=== PATIENT | female | born 1955 | race Two or more races ===

== ENCOUNTER 2025-02-28 09:37 | Inpatient (IN) | payer OTHER ==
[~2025-02-28] VITALS: Wt 54.4 kg
[2025-02-28] MEDS ORDERED: CEFTRIAXONE SODIUM 1,000 MG VIAL IV SCH (20:13)
[2025-02-28] MEDS ORDERED: NITROGLYCERIN IN 5 % DEXTROSE 250 ML IV SCH (20:15)
[2025-02-28] MEDS ORDERED: ENOXAPARIN SODIUM 30 MG/0.3 ML SYRINGE SUBCUTANEO SCH (20:15)
[2025-02-28] MEDS ORDERED: ACETAMINOPHEN 325 MG TABLET PO PRN (20:15)
[2025-02-28] MEDS ORDERED: ATORVASTATIN CALCIUM 20 MG TABLET PO SCH (20:20)
[2025-02-28] MEDS ORDERED: ENOXAPARIN SODIUM 40 MG/0.4 ML SYRINGE SUBCUTANEO ONE (20:58)
[2025-02-28] MEDS ORDERED: CEFTRIAXONE SODIUM 1,000 MG VIAL ONE (20:58)
[2025-02-28] MEDS ORDERED: NITROGLYCERIN IN 5 % DEXTROSE 50 MG/250 ML BOTTLE IV ONE (20:59)
[2025-02-28 21:46] LABS: BASO % 0.8 % (0.1-1.2); EOS # 0.36 (0.04-0.54); EOS % 6.8 % (0.7-7.0); LYMPH # 1.46 (1.18-3.74); LYMPH % 27.5 % (19.3-53.1); MEAN PLATELET VOLUME 11.10 fl (9.4-12.4); MONO # 0.55 (0.24-0.82); MONO % 10.4 % (4.7-12.5); NEUT # 2.88 (1.56-6.13); NEUT % 54.3 % (34.0-71.1); RED CELL DISTRIBUTION WIDTH 15.5 % (11.6-14.4)
[2025-02-28 22:49] LABS: INR 1.14
[2025-02-28 22:56] LABS: ABG PH 7.314 (7.35-7.45)
[2025-02-28 22:57] LABS: ABG PO2 97.5 mmHg (80-100); BICARBONATE 15.8 mmol/l (23-25); o2 21 %
[2025-02-28 23:03] LABS: BUN CREA RATIO 25.0 (7.0-25.0); CREATININE SERUM 3.61 mg/dL (0.55-1.02); GFR 12.46; GLUCOSE FASTING 117.0 mg/dL (65-100); OSMOLALITY SERUM 312.0 MOSM/KG (275-295)
[2025-02-28 23:16] LABS: CKMB 2.2 NG/ML (0.5-3.6)
[2025-03-01 00:06] LABS: URINE APPEARANCE Clear; URINE BILIRRUBIN Negative (NEGATIVE); URINE BLOOD Negative; URINE COLOR Yellow; URINE KETONE Negative (NEGATIVE); URINE LEUKOCYTE Small; URINE NITRATE Negative; URINE PROTEIN Trace (NEGATIVE); URINE UROBILINOGEN 0.2 E.U./dl
[2025-03-01 00:09] LABS: URINE BACTERIA 1975.0 uL (0.0-1933); URINE EPITHELIAL CELLS 7.8 uL (0.0-38.8); URINE WBC 101.5 uL (0.0-23.2)
[2025-03-01 00:23] LABS: URINE CAST 0.73 uL (0.0-1.40); URINE GLUCOSE 100 MG/DL (NEGATIVE); URINE RBC 1.0 uL (0.0-20.8)
[2025-03-01 02:05] VITALS: BP 192/72; O2SAT 99
[2025-03-01 02:24] VITALS: O2SAT 100
[2025-03-01 05:59] VITALS: O2SAT 100
[2025-03-01] MEDS ORDERED: NITROGLYCERIN IN 5 % DEXTROSE 250 ML IV SCH (07:15)
[2025-03-01 07:54] LABS: CREATININE SERUM 3.98 mg/dL (0.6-1.0)
[2025-03-01 08:00] VITALS: BP 143/52; O2SAT 98
[2025-03-01] MEDS ORDERED: AMLODIPINE BESYLATE 5 MG TABLET PO SCH (09:00)
[2025-03-01] MEDS ORDERED: CARVEDILOL 12.5 MG TABLET PO SCH (09:00)
[2025-03-01 09:47] VITALS: O2SAT 100
[2025-03-01 15:30] VITALS: BP 156/82; O2SAT 99
[2025-03-02] VITALS (9 sets, daily range): BP systolic 130–158; BP diastolic 60–73; O2SAT 90–100
[2025-03-02 07:23] LABS: GFR 9.1; GLUCOSE FASTING 83.0 mg/dL (65-100)
[2025-03-02 07:38] LABS: BUN CREA RATIO 23.0 (7.0-25.0); OSMOLALITY SERUM 314.0 MOSM/KG (275-295)
[2025-03-02 07:40] LABS: CREATININE SERUM 4.74 mg/dL (0.55-1.02)
[2025-03-02] MEDS ORDERED: MEROPENEM 500 MG/VIAL VIAL IV SCH (09:00)
[2025-03-02] MEDS ORDERED: 0.9 % SODIUM CHLORIDE 1,000 ML IV SCH (11:00)
[2025-03-02] MEDS ORDERED: SODIUM POLYSTYRENE SULFONATE 15 G/4 TSP TSP PO SCH (17:00)
[2025-03-03] VITALS (7 sets, daily range): BP systolic 186–191; BP diastolic 74; O2SAT 91–100
[2025-03-03 06:54] LABS: BASO % 1.1 % (0.1-1.2); EOS # 0.45 (0.04-0.54); EOS % 9.5 % (0.7-7.0); LYMPH # 1.38 (1.18-3.74); LYMPH % 29.2 % (19.3-53.1); MEAN PLATELET VOLUME 10.60 fl (9.4-12.4); MONO # 0.48 (0.24-0.82); MONO % 10.2 % (4.7-12.5); NEUT # 2.36 (1.56-6.13); NEUT % 50.0 % (34.0-71.1); RED CELL DISTRIBUTION WIDTH 14.9 % (11.6-14.4)
[2025-03-03 07:44] LABS: BUN CREA RATIO 28.0 (7.0-25.0); CREATININE SERUM 3.39 mg/dL (0.55-1.02); GFR 13.4; GLUCOSE FASTING 82.0 mg/dL (65-100); OSMOLALITY SERUM 312.0 MOSM/KG (275-295)
[2025-03-03] MEDS ORDERED: MEROPENEM 500 MG/VIAL VIAL IV SCH (21:00)
[2025-03-04] VITALS (10 sets, daily range): BP systolic 141–192; BP diastolic 70–81; O2SAT 98–100
[2025-03-04] MEDS ORDERED: NIFEDIPINE 30 MG TAB.SA.OSM PO SCH ×2 (09:00→21:00)
[2025-03-04 12:44] LABS: ALT/SGPT 15.0 U/L (12-78); AST/SGOT 14.0 U/L (15-37); BILIRUBIN TOTAL 1.0 mg/dL (0.3-1.2); BUN CREA RATIO 34.0 (7.0-25.0); CREATININE SERUM 2.33 mg/dL (0.55-1.02); GFR 20.65; GLOBULINA 3.6 G/DL (2.4-3.5); GLUCOSE FASTING 109.0 mg/dL (65-100); OSMOLALITY SERUM 306.0 MOSM/KG (275-295)
[2025-03-04] MEDS ORDERED: DOXAZOSIN MESYLATE 2 MG TABLET PO SCH (21:00)
[2025-03-05] VITALS (9 sets, daily range): BP systolic 118–144; BP diastolic 62–64; O2SAT 91–99
[2025-03-05 08:38] LABS: BUN CREA RATIO 24.0 (7.0-25.0); CREATININE SERUM 3.37 mg/dL (0.55-1.02); GFR 13.49; GLUCOSE FASTING 95.0 mg/dL (65-100); OSMOLALITY SERUM 297.0 MOSM/KG (275-295)
[2025-03-05 08:39] LABS: BASO % 1.0 % (0.1-1.2); EOS # 0.38 (0.04-0.54); EOS % 9.1 % (0.7-7.0); LYMPH # 0.93 (1.18-3.74); LYMPH % 22.2 % (19.3-53.1); MEAN PLATELET VOLUME 11.30 fl (9.4-12.4); MONO # 0.47 (0.24-0.82); MONO % 11.2 % (4.7-12.5); NEUT # 2.35 (1.56-6.13); NEUT % 56.3 % (34.0-71.1); RED CELL DISTRIBUTION WIDTH 14.6 % (11.6-14.4)
[2025-03-05] MEDS ORDERED: TAMSULOSIN HCL 0.4 MG CAP PO SCH (09:00)
[2025-03-05 11:59] LABS: URINE APPEARANCE Cloudy; URINE BILIRRUBIN Negative (NEGATIVE); URINE BLOOD Negative; URINE COLOR Dark Yellow; URINE GLUCOSE Negative (NEGATIVE); URINE KETONE 15 (NEGATIVE); URINE LEUKOCYTE Trace; URINE NITRATE Negative; URINE PROTEIN 30 (NEGATIVE); URINE UROBILINOGEN 1.0 E.U./dl
[2025-03-05] MEDS ORDERED: PHENAZOPYRIDINE HCL 100 MG TABLET PO NR (12:00)
[2025-03-05 12:03] LABS: URINE BACTERIA 133.1 uL (0.0-1933); URINE CAST 13.63 uL (0.0-1.40); URINE EPITHELIAL CELLS 56.2 uL (0.0-38.8); URINE RBC 32.7 uL (0.0-20.8); URINE WBC 50.9 uL (0.0-23.2)
[2025-03-05 12:15] LABS: TYPE CELLS SQUAMOUS; URINE CRYSTALS FEW /HPF; URINE MUCUS SCANT
[2025-03-05 12:16] LABS: URINE YEAST FEW /hpf
[2025-03-05] MEDS ORDERED: AMINO ACIDS/PROTEIN HYDROLYS 30 ML BLIST.PACK PO SCH (21:00)
[2025-03-06] VITALS (8 sets, daily range): BP systolic 132–149; BP diastolic 57–64; O2SAT 96–99
[2025-03-06] MEDS ORDERED: PHENAZOPYRIDINE HCL 100 MG TABLET PO SCH (09:00)
[2025-03-06] MEDS ORDERED: ONDANSETRON HCL 4 MG in 0.9 % SODIUM CHLORIDE 50 ML IV PRN (17:30)
[2025-03-07] VITALS (8 sets, daily range): BP systolic 148–184; BP diastolic 54–77; O2SAT 95–100
[2025-03-07 06:44] LABS: BASO % 1.0 % (0.1-1.2); EOS # 0.25 (0.04-0.54); EOS % 8.1 % (0.7-7.0); LYMPH # 0.90 (1.18-3.74); LYMPH % 29.1 % (19.3-53.1); MEAN PLATELET VOLUME 10.50 fl (9.4-12.4); MONO # 0.34 (0.24-0.82); MONO % 11.0 % (4.7-12.5); NEUT # 1.56 (1.56-6.13); NEUT % 50.5 % (34.0-71.1); RED CELL DISTRIBUTION WIDTH 15.1 % (11.6-14.4)
[2025-03-07 07:30] LABS: BUN CREA RATIO 29.0 (7.0-25.0); CREATININE SERUM 2.48 mg/dL (0.55-1.02); GFR 19.22; GLUCOSE FASTING 77.0 mg/dL (65-100); OSMOLALITY SERUM 302.0 MOSM/KG (275-295)
[2025-03-08] VITALS (8 sets, daily range): BP systolic 133–147; BP diastolic 56–73; O2SAT 95–99
[2025-03-09 01:20] VITALS: BP 148/74; O2SAT 97
[2025-03-09 01:54] VITALS: O2SAT 98
[2025-03-09 06:15] VITALS: O2SAT 90
[2025-03-09 06:38] LABS: BASO % 1.1 % (0.1-1.2); EOS # 0.34 (0.04-0.54); EOS % 9.4 % (0.7-7.0); LYMPH # 1.10 (1.18-3.74); LYMPH % 30.4 % (19.3-53.1); MEAN PLATELET VOLUME 10.30 fl (9.4-12.4); MONO # 0.45 (0.24-0.82); NEUT # 1.69 (1.56-6.13); NEUT % 46.7 % (34.0-71.1); RED CELL DISTRIBUTION WIDTH 14.8 % (11.6-14.4)
[2025-03-09 06:59] LABS: MONO % 12.4 % (4.7-12.5)
[2025-03-09 07:02] LABS: BUN CREA RATIO 40.0 (7.0-25.0); CREATININE SERUM 1.29 mg/dL (0.55-1.02); GFR 40.86; GLUCOSE FASTING 93.0 mg/dL (65-100); OSMOLALITY SERUM 298.0 MOSM/KG (275-295)
[2025-03-09 10:59] VITALS: BP 138/78; O2SAT 95
[2025-03-09 11:01] VITALS: O2SAT 98
[2025-03-09 13:30] VITALS: O2SAT 99
== END 2025-03-09 14:05 | disposition home or self-care (01) | DRG 690 ==
LOC: ER 09:37 → SURG 20:10 → SEC-K 20:10 → SURH 20:10 → SURG 03-01 00:26 → SURH 03-02 10:10
PROVIDERS: General Practice; Internal Medicine; Specialist/Technologist, Other Nephrology; Student in an Organized Health Care Education/Training Program; ADMIT Internal Medicine; ATTEND Internal Medicine
PROC: B246ZZZ Ultrasonography of Right and Left Heart (ICD-10-PCS; principal; 2025-02-28)
PROC: 4A12X4Z Monitoring of Cardiac Electrical Activity, External Approach (ICD-10-PCS; 2025-03-01)
DX: N39.0 Urinary tract infection, site not specified (principal); N17.8 Other acute kidney failure; I13.0 Hypertensive heart and chronic kidney disease with heart failure and stage 1 through stage 4 chronic kidney disease, or unspecified chronic kidney disease; E87.21 Acute metabolic acidosis; B96.1 Klebsiella pneumoniae [K. pneumoniae] as the cause of diseases classified elsewhere; I12.9 Hypertensive chronic kidney disease with stage 1 through stage 4 chronic kidney disease, or unspecified chronic kidney disease; N18.30 Chronic kidney disease, stage 3 unspecified; I50.9 Heart failure, unspecified; E78.49 Other hyperlipidemia; D64.9 Anemia, unspecified; E86.0 Dehydration

== ENCOUNTER 2025-04-19 16:28 | Inpatient (IN) | payer OTHER ==
[~2025-04-19] VITALS: Ht 152.4 cm; Wt 56.7 kg
[2025-04-19] MEDS ORDERED: CARVEDILOL ER40 MG (17:02)
[2025-04-19] MEDS ORDERED: EZALLOR SPRINKL20 MG (17:02)
[2025-04-19] MEDS ORDERED: ENTRESTO 24 MG1 EACH (17:02)
[2025-04-19] MEDS ORDERED: JARDIANCE10 MG (17:03)
[2025-04-19] MEDS ORDERED: ZETIA10 MG (17:03)
[2025-04-19] MEDS ORDERED: CAROSPIR25 MG/5 ML (17:03)
[2025-04-19] MEDS ORDERED: MONTELUKAST SODI1 GM (17:04)
--- NOTE | 2025-04-19 17:04 | NUR ---
PTE ALERTA Y ORIENTADA X3 PTE RENAL DE EL MISMO LA ENVIO A ER LA PTE TIENE LAB CON BUN Y CREATININA QUE. EL DR. SHAW INDICO QUE CUANDO LA PTE LLEGARA LO LLAMARAN
[2025-04-19] MEDS ORDERED: NIFEDIPINE 30 MG TAB.SA.OSM PO ONE (17:45)
[2025-04-19] MEDS ORDERED: NIFEDIPINE 10 MG CAPSULE PO ONE (17:57)
[2025-04-19 18:24] LABS: BASO % 0.9 % (0.1-1.2); EOS # 0.29 (0.04-0.54); EOS % 6.8 % (0.7-7.0); LYMPH # 0.87 (1.18-3.74); LYMPH % 20.5 % (19.3-53.1); MEAN PLATELET VOLUME 10.50 fl (9.4-12.4); MONO # 0.47 (0.24-0.82); MONO % 11.1 % (4.7-12.5); NEUT # 2.56 (1.56-6.13); NEUT % 60.5 % (34.0-71.1); RED CELL DISTRIBUTION WIDTH 15.9 % (11.6-14.4)
[2025-04-19 18:27] LABS: URINE APPEARANCE Clear; URINE BILIRRUBIN Negative (NEGATIVE); URINE BLOOD Negative; URINE COLOR Yellow; URINE GLUCOSE Negative (NEGATIVE); URINE KETONE Negative (NEGATIVE); URINE LEUKOCYTE Negative; URINE NITRATE Negative; URINE PROTEIN 30 (NEGATIVE); URINE UROBILINOGEN 0.2 E.U./dl
[2025-04-19 18:30] LABS: URINE BACTERIA 4.7 uL (0.0-1933); URINE EPITHELIAL CELLS 3.5 uL (0.0-38.8); URINE WBC 2.6 uL (0.0-23.2)
--- NOTE | 2025-04-19 18:39 | NUR ---
SE ORIENTA A PACIENTE SOBRE TRATAMIENTO MEDICO, REFIERE ENTENDER. SE REALIZAN MUESTRAS DE LABORATORIO BAJO MEDIDAS ASEPTICAS. SE ADMINISTRA MEDICAMENTO MAO ORDEN MEDICA. SE COORDINA KAYLIE X. PACIENTE MANEJADA POR .
[2025-04-19 18:41] LABS: URINE CAST 0.29 uL (0.0-1.40); URINE RBC 0.4 uL (0.0-20.8)
[2025-04-19 18:59] LABS: ALT/SGPT 15.0 U/L (12-78); AST/SGOT 16.0 U/L (15-37); BILIRUBIN TOTAL 0.61 mg/dL (0.3-1.2); GLOBULINA 3.6 G/DL (2.4-3.5); GLUCOSE FASTING 100.0 mg/dL (65-100)
[2025-04-19 19:10] LABS: INR 1.01
[2025-04-19 19:22] LABS: BUN CREA RATIO 29.0 (7.0-25.0); GFR 10.91; OSMOLALITY SERUM 315.0 MOSM/KG (275-295)
[2025-04-19 19:24] LABS: CREATININE SERUM 4.05 mg/dL (0.55-1.02)
[2025-04-19] MEDS ORDERED: INSULIN REGULAR, HUMAN 1,000 UNIT/10 ML UNITS IV ONE (19:30)
[2025-04-19] MEDS ORDERED: CALCIUM GLUCONATE 100 MG/ML VIAL IV ONE (19:30)
[2025-04-19] MEDS ORDERED: SODIUM POLYSTYRENE SULFONATE 30G/8 TSP PO ONE (19:30)
[2025-04-19] MEDS ORDERED: DEXTROSE 50 % IN WATER 0.5 G/ML VIAL IV ONE (19:30)
[2025-04-19] MEDS ORDERED: NITROGLYCERIN IN 5 % DEXTROSE 250 ML IV SCH (19:30)
[2025-04-19] MEDS ORDERED: CALCIUM GLUCONATE 100 MG/ML VIAL ONE (19:41)
[2025-04-19] MEDS ORDERED: DEXTROSE 50 % IN WATER 0.5 G/ML DISP.SYRIN IV ONE (19:41)
[2025-04-19] MEDS ORDERED: NITROGLYCERIN IN 5 % DEXTROSE 50 MG/250 ML BOTTLE IV ONE (19:42)
[2025-04-19] MEDS ORDERED: ACETAMINOPHEN 500 MG GEL..CAP PO PRN (20:00)
[2025-04-19] MEDS ORDERED: SODIUM BICARBONATE 1 MEQ/ML DISP.SYRIN 50ML IV ONE ×2 (20:00→20:18)
[2025-04-19] MEDS ORDERED: SODIUM POLYSTYRENE SULFONATE 30G/8 TSP PO SCH (20:01)
[2025-04-19] MEDS ORDERED: 0.9 % SODIUM CHLORIDE 500 ML IV ONE (20:15)
[2025-04-19] MEDS ORDERED: CITRIC ACID/SODIUM CITRATE 30 ML BLIST.PACK PO ONE (20:18)
[2025-04-19] MEDS ORDERED: CITRIC ACID/SODIUM CITRATE 30 ML BLIST.PACK PO SCH (21:00)
[2025-04-19 22:18] VITALS: BP 158/68; O2SAT 97
[2025-04-19 23:46] VITALS: BP 145/55; O2SAT 99
[2025-04-20] VITALS (12 sets, daily range): BP systolic 116–205; BP diastolic 47–100; O2SAT 96–100
[2025-04-20 06:53] LABS: TSH 2.01 uIU/mL (0.358-3.74)
[2025-04-20] MEDS ORDERED: NITROGLYCERIN IN 5 % DEXTROSE 50 MG/250 ML KIT IV STA (07:09)
[2025-04-20] MEDS ORDERED: NITROGLYCERIN IN 5 % DEXTROSE 50 MG/250 ML KIT IV SCH (07:15)
[2025-04-20] MEDS ORDERED: CLEVIDIPINE BUTYRATE 50 MG/100 ML VIAL IV STA (08:58)
[2025-04-20] MEDS ORDERED: FAMOTIDINE/PF 20 MG in 0.9 % SODIUM CHLORIDE 8 ML IV PUSH SCH (09:00)
[2025-04-20] MEDS ORDERED: ROSUVASTATIN CALCIUM 10 MG TABLET PO SCH (09:00)
[2025-04-20] MEDS ORDERED: NIFEDIPINE 10 MG CAPSULE PO SCH (09:00)
[2025-04-20] MEDS ORDERED: AMINO ACIDS/PROTEIN HYDROLYS 30 ML BLIST.PACK PO SCH (09:00)
[2025-04-20] MEDS ORDERED: CLEVIDIPINE BUTYRATE 100 ML IV SCH (09:30)
[2025-04-20] MEDS ORDERED: NITROGLYCERIN IN 5 % DEXTROSE 250 ML IV SCH (09:30)
[2025-04-20] MEDS ORDERED: FAMOTIDINE/PF 20 MG/2 ML VIAL ONE (10:29)
[2025-04-20] MEDS ORDERED: NIFEDIPINE 10 MG CAPSULE PO ONE (10:29)
[2025-04-20 12:00] LABS: BASO % 0.8 % (0.1-1.2); EOS # 0.26 (0.04-0.54); EOS % 5.3 % (0.7-7.0); LYMPH # 0.64 (1.18-3.74); LYMPH % 13.0 % (19.3-53.1); MEAN PLATELET VOLUME 10.60 fl (9.4-12.4); MONO # 0.41 (0.24-0.82); MONO % 8.3 % (4.7-12.5); NEUT # 3.57 (1.56-6.13); NEUT % 72.4 % (34.0-71.1); RED CELL DISTRIBUTION WIDTH 15.5 % (11.6-14.4)
[2025-04-20 12:26] LABS: ALT/SGPT 13.0 U/L (12-78); AST/SGOT 12.0 U/L (15-37); BILIRUBIN TOTAL 0.61 mg/dL (0.3-1.2); BUN CREA RATIO 30.0 (7.0-25.0); CREATININE SERUM 3.58 mg/dL (0.55-1.02); GFR 12.58; GLOBULINA 3.7 G/DL (2.4-3.5); GLUCOSE FASTING 165.0 mg/dL (65-100); OSMOLALITY SERUM 322.0 MOSM/KG (275-295)
[2025-04-20] MEDS ORDERED: PATIENTS OWN MEDICATION (MEDICAMENTO EN PISO) PO SCH (17:00)
[2025-04-20] MEDS ORDERED: DOXAZOSIN MESYLATE 4 MG TABLET PO SCH (17:00)
[2025-04-21] VITALS (17 sets, daily range): BP systolic 147–183; BP diastolic 45–88; O2SAT 99–100
[2025-04-21 06:43] LABS: BASO % 1.1 % (0.1-1.2); EOS # 0.37 (0.04-0.54); EOS % 7.9 % (0.7-7.0); LYMPH # 1.08 (1.18-3.74); LYMPH % 23.2 % (19.3-53.1); MEAN PLATELET VOLUME 10.40 fl (9.4-12.4); MONO # 0.51 (0.24-0.82); MONO % 10.9 % (4.7-12.5); NEUT # 2.64 (1.56-6.13); NEUT % 56.7 % (34.0-71.1); RED CELL DISTRIBUTION WIDTH 15.6 % (11.6-14.4)
[2025-04-21 07:27] LABS: ALT/SGPT 14.0 U/L (12-78); AST/SGOT 18.0 U/L (15-37); BILIRUBIN TOTAL 0.79 mg/dL (0.3-1.2); BUN CREA RATIO 38.0 (7.0-25.0); CREATININE SERUM 2.59 mg/dL (0.55-1.02); GFR 18.28; GLOBULINA 3.5 G/DL (2.4-3.5); GLUCOSE FASTING 106.0 mg/dL (65-100); OSMOLALITY SERUM 318.0 MOSM/KG (275-295)
[2025-04-21 08:29] LABS: URINE PROT QUANT 24HR 17.9 MG/DL
[2025-04-21 08:33] LABS: CREATINE CLEARANCE 18.6 ML/MIN (97-137); CREATININE SERUM 2.59 mg/dL (0.6-1.0)
[2025-04-21] MEDS ORDERED: DOXAZOSIN MESYLATE 4 MG TABLET PO SCH (09:00)
[2025-04-21] MEDS ORDERED: NIFEDIPINE 30 MG TAB.SA.OSM PO SCH (09:00)
[2025-04-21] MEDS ORDERED: EPOETIN ALFA-EPBX 10,000 UNIT/ML VIAL (Retacrit) SUBCUTANEO SCH ×2 (09:00)
[2025-04-21] MEDS ORDERED: MEROPENEM 500 MG/VIAL VIAL IV SCH (21:00)
[2025-04-22] VITALS (18 sets, daily range): BP systolic 106–168; BP diastolic 43–99; O2SAT 93–100
[2025-04-22 06:48] LABS: BASO % 0.8 % (0.1-1.2); EOS # 0.32 (0.04-0.54); EOS % 6.7 % (0.7-7.0); LYMPH # 1.11 (1.18-3.74); LYMPH % 23.2 % (19.3-53.1); MEAN PLATELET VOLUME 10.50 fl (9.4-12.4); MONO # 0.59 (0.24-0.82); NEUT # 2.72 (1.56-6.13); NEUT % 56.8 % (34.0-71.1); RED CELL DISTRIBUTION WIDTH 15.3 % (11.6-14.4)
[2025-04-22 07:45] LABS: MONO % 12.3 % (4.7-12.5)
[2025-04-22] MEDS ORDERED: LACTOBACILLUS ACIDOPHILUS 1 CAP CAP PO SCH (09:00)
[2025-04-22 09:45] LABS: ALT/SGPT 12.0 U/L (12-78); AST/SGOT 10.0 U/L (15-37); BILIRUBIN TOTAL 0.86 mg/dL (0.3-1.2); BUN CREA RATIO 29.0 (7.0-25.0); CREATININE SERUM 3.77 mg/dL (0.55-1.02); GFR 11.85; GLOBULINA 3.3 G/DL (2.4-3.5); GLUCOSE FASTING 100.0 mg/dL (65-100); OSMOLALITY SERUM 317.0 MOSM/KG (275-295)
[2025-04-22] MEDS ORDERED: Cyanocobalamin/Mecobalamin 1 TAB.SL SL NR (12:45)
[2025-04-22] MEDS ORDERED: ONDANSETRON HCL 2 MG/ML VIAL IV PRN (12:45)
[2025-04-22] MEDS ORDERED: SOD FERRIC GLUC COMPLX/SUCROSE 62.5 MG in 0.9 % SODIUM CHLORIDE 50 ML IV NR (12:45)
[2025-04-23 04:00] VITALS: BP 145/67; O2SAT 98
[2025-04-23 06:54] VITALS: BP 150/86; O2SAT 96
[2025-04-23 07:56] LABS: BASO % 0.4 % (0.1-1.2); EOS # 0.32 (0.04-0.54); EOS % 6.5 % (0.7-7.0); LYMPH # 1.03 (1.18-3.74); LYMPH % 20.8 % (19.3-53.1); MEAN PLATELET VOLUME 11.10 fl (9.4-12.4); MONO # 0.61 (0.24-0.82); NEUT # 2.96 (1.56-6.13); NEUT % 59.8 % (34.0-71.1); RED CELL DISTRIBUTION WIDTH 15.4 % (11.6-14.4)
[2025-04-23 08:16] LABS: MONO % 12.3 % (4.7-12.5)
[2025-04-23 08:29] LABS: GFR 7.52; GLUCOSE FASTING 96.0 mg/dL (65-100)
[2025-04-23] MEDS ORDERED: SOD FERRIC GLUC COMPLX/SUCROSE 62.5 MG in 0.9 % SODIUM CHLORIDE 50 ML IV SCH (09:00)
[2025-04-23] MEDS ORDERED: Cyanocobalamin/Mecobalamin 1 TAB.SL SL SCH (09:00)
[2025-04-23 09:07] LABS: BUN CREA RATIO 22.0 (7.0-25.0); OSMOLALITY SERUM 317.0 MOSM/KG (275-295)
[2025-04-23 09:08] LABS: CREATININE SERUM 5.59 mg/dL (0.55-1.02)
[2025-04-23] MEDS ORDERED: SOD FERRIC GLUC COMPLX/SUCROSE 62.5 MG/5 ML AMPUL IV ONE (09:36)
[2025-04-23 12:00] VITALS: BP 160/52; O2SAT 97
[2025-04-23 13:30] VITALS: BP 154/73; O2SAT 97
[2025-04-23 17:00] VITALS: BP 177/65; O2SAT 95
[2025-04-23] MEDS ORDERED: NIFEDIPINE 30 MG TAB.SA.OSM PO SCH (17:00)
[2025-04-24 01:45] VITALS: BP 129/59; O2SAT 95
[2025-04-24 06:31] LABS: BASO % 0.3 % (0.1-1.2); EOS # 0.31 (0.04-0.54); EOS % 5.3 % (0.7-7.0); LYMPH # 0.96 (1.18-3.74); LYMPH % 16.5 % (19.3-53.1); MEAN PLATELET VOLUME 11.00 fl (9.4-12.4); MONO # 0.74 (0.24-0.82); NEUT # 3.79 (1.56-6.13); NEUT % 65.0 % (34.0-71.1); RED CELL DISTRIBUTION WIDTH 14.9 % (11.6-14.4)
[2025-04-24 06:44] LABS: MONO % 12.7 % (4.7-12.5)
[2025-04-24 07:24] LABS: GFR 6.05; GLUCOSE FASTING 104.0 mg/dL (65-100)
[2025-04-24 07:59] LABS: BUN CREA RATIO 21.0 (7.0-25.0); OSMOLALITY SERUM 313.0 MOSM/KG (275-295)
[2025-04-24 08:01] LABS: CREATININE SERUM 6.75 mg/dL (0.55-1.02)
[2025-04-24 09:35] VITALS: BP 127/56; O2SAT 97
[2025-04-24 17:00] VITALS: BP 119/66; BP 174/69; O2SAT 97; O2SAT 99
[2025-04-24 19:32] LABS: ob NEGATIVE (NEGATIVE)
[2025-04-24 20:53] LABS: COVID-19 AG NEGATIVE (NEGATIVE)
[2025-04-25 01:44] VITALS: BP 145/66; O2SAT 96
[2025-04-25 06:20] LABS: BASO % 0.2 % (0.1-1.2); EOS # 0.26 (0.04-0.54); EOS % 4.8 % (0.7-7.0); LYMPH # 0.88 (1.18-3.74); LYMPH % 16.2 % (19.3-53.1); MEAN PLATELET VOLUME 10.60 fl (9.4-12.4); MONO # 0.83 (0.24-0.82); NEUT # 3.44 (1.56-6.13); NEUT % 63.1 % (34.0-71.1); RED CELL DISTRIBUTION WIDTH 14.4 % (11.6-14.4)
[2025-04-25 06:55] LABS: MONO % 15.3 % (4.7-12.5)
[2025-04-25 07:16] LABS: ALT/SGPT 8.0 U/L (12-78); AST/SGOT 13.0 U/L (15-37); BILIRUBIN TOTAL 0.86 mg/dL (0.3-1.2); GLOBULINA 3.0 G/DL (2.4-3.5); GLUCOSE FASTING 92.0 mg/dL (65-100)
[2025-04-25 07:32] LABS: URINE PROT QUANT 24HR 48.7 MG/DL
[2025-04-25 07:47] LABS: URINE PROT QUANT 24 HR 170.45 MG/24HR (42-225)
[2025-04-25 07:51] LABS: BUN CREA RATIO 19.0 (7.0-25.0); GFR 5.2; OSMOLALITY SERUM 305.0 MOSM/KG (275-295)
[2025-04-25 07:52] LABS: CREATININE SERUM 7.7 mg/dL (0.55-1.02)
[2025-04-25 07:53] LABS: CREATINE CLEARANCE 3.8 ML/MIN (97-137); CREATININE SERUM 7.7 mg/dL (0.6-1.0)
[2025-04-25 08:42] VITALS: BP 159/55; O2SAT 98
[2025-04-25] MEDS ORDERED: HEPARIN SODIUM,PORCINE 1,000 UNITS/ML VIAL SPEPROC ONE (11:45)
[2025-04-25 16:44] LABS: BASO % 0.2 % (0.1-1.2); EOS # 0.27 (0.04-0.54); EOS % 5.4 % (0.7-7.0); LYMPH # 0.77 (1.18-3.74); LYMPH % 15.4 % (19.3-53.1); MEAN PLATELET VOLUME 10.30 fl (9.4-12.4); MONO # 0.68 (0.24-0.82); NEUT # 3.26 (1.56-6.13); NEUT % 65.2 % (34.0-71.1); RED CELL DISTRIBUTION WIDTH 14.3 % (11.6-14.4)
[2025-04-25 16:48] LABS: MONO % 13.6 % (4.7-12.5)
[2025-04-25] MEDS ORDERED: LIDOCAINE HCL 1% 20 ML VIAL IJ ONE (19:27)
[2025-04-25] MEDS ORDERED: LIDOCAINE HCL 1%/EPINEPHRINE 20ML VIAL IJ ONE (19:32)
[2025-04-25] MEDS ORDERED: CEFAZOLIN SODIUM 1,000 MG VIAL ONE (19:58)
[2025-04-25 21:07] VITALS: BP 170/76; O2SAT 99
[2025-04-25] MEDS ORDERED: CLEVIDIPINE BUTYRATE 100 ML IV SCH (21:30)
[2025-04-26] VITALS (19 sets, daily range): BP systolic 121–173; BP diastolic 53–98; O2SAT 96–100
[2025-04-26] MEDS ORDERED: DOXAZOSIN MESYLATE 8 MG TABLET PO SCH (17:00)
[2025-04-27] VITALS (15 sets, daily range): BP systolic 131–181; BP diastolic 59–100; O2SAT 93–100
[2025-04-27] MEDS ORDERED: HEPARIN SODIUM,PORCINE 1,000 UNITS/ML VIAL IV SCH (09:00)
[2025-04-27 10:10] LABS: hav igm Negative (Negative); hep b c Negative (Negative); hep b s ag Negative (Negative)
[2025-04-27] MEDS ORDERED: hydrALAZINE HCL 20 MG VIAL IV PRN (14:15)
[2025-04-28] VITALS (16 sets, daily range): BP systolic 106–207; BP diastolic 51–83; O2SAT 91–100
[2025-04-28 06:33] LABS: BASO % 0.4 % (0.1-1.2); EOS # 0.27 (0.04-0.54); EOS % 5.7 % (0.7-7.0); LYMPH # 0.73 (1.18-3.74); LYMPH % 15.5 % (19.3-53.1); MEAN PLATELET VOLUME 10.20 fl (9.4-12.4); MONO # 0.87 (0.24-0.82); NEUT # 2.80 (1.56-6.13); NEUT % 59.4 % (34.0-71.1); RED CELL DISTRIBUTION WIDTH 14.6 % (11.6-14.4)
[2025-04-28 06:51] LABS: MONO % 18.4 % (4.7-12.5)
[2025-04-28 07:13] LABS: ALT/SGPT 7.0 U/L (12-78); AST/SGOT 11.0 U/L (15-37); BILIRUBIN TOTAL 0.75 mg/dL (0.3-1.2); GFR 7.75; GLOBULINA 2.9 G/DL (2.4-3.5); GLUCOSE FASTING 94.0 mg/dL (65-100)
[2025-04-28 07:21] LABS: BUN CREA RATIO 20.0 (7.0-25.0); CREATININE SERUM 5.45 mg/dL (0.55-1.02); OSMOLALITY SERUM 298.0 MOSM/KG (275-295)
[2025-04-28] MEDS ORDERED: NIFEDIPINE 60 MG TAB.SA.OSM PO SCH (17:00)
[2025-04-28] MEDS ORDERED: CHLORHEXIDINE GLUCONATE 120 ML BOTTLE TOP ONE (17:46)
[2025-04-28] MEDS ORDERED: CLONIDINE HCL 0.1 MG TABLET PO SCH (21:00)
[2025-04-28] MEDS ORDERED: CLEVIDIPINE BUTYRATE 100 ML IV SCH (22:15)
[2025-04-29] VITALS (15 sets, daily range): BP systolic 109–156; BP diastolic 55–64; O2SAT 95–100
[2025-04-29 07:49] LABS: BASO % 0.6 % (0.1-1.2); EOS # 0.36 (0.04-0.54); EOS % 7.6 % (0.7-7.0); LYMPH # 0.66 (1.18-3.74); LYMPH % 13.9 % (19.3-53.1); MEAN PLATELET VOLUME 10.70 fl (9.4-12.4); MONO # 0.85 (0.24-0.82); NEUT # 2.84 (1.56-6.13); NEUT % 59.6 % (34.0-71.1); RED CELL DISTRIBUTION WIDTH 15.0 % (11.6-14.4)
[2025-04-29 07:55] LABS: MONO % 17.9 % (4.7-12.5)
[2025-04-29] MEDS ORDERED: hydrALAZINE HCL 50 MG,hydrALAZINE HCL 25 MG PO SCH (17:00)
[2025-04-30 04:03] VITALS: BP 134/53; O2SAT 98
[2025-04-30 07:15] VITALS: BP 124/53; O2SAT 98
[2025-04-30 08:05] VITALS: BP 137/59; O2SAT 97
[2025-04-30 12:08] VITALS: BP 130/52; O2SAT 94
[2025-04-30 15:26] VITALS: BP 153/56; O2SAT 96
[2025-04-30] MEDS ORDERED: NIFEDIPINE 90 MG TAB.SA.OSM PO SCH (17:00)
[2025-04-30 18:59] VITALS: BP 140/55; O2SAT 97
[2025-04-30] MEDS ORDERED: CLONIDINE HCL 0.1 MG TABLET PO SCH (21:00)
[2025-05-01 03:26] VITALS: BP 128/54; O2SAT 98
[2025-05-01 08:56] VITALS: BP 125/62; O2SAT 95
[2025-05-01 18:22] VITALS: BP 164/54
[2025-05-01] MEDS ORDERED: cloNIDine 0.1 MG/24 H PATCH.TDWK TD SCH (21:34)
[2025-05-02 04:17] VITALS: BP 150/50; O2SAT 96
[2025-05-02 08:14] VITALS: BP 150/78; O2SAT 96
== END 2025-05-02 14:09 | disposition home or self-care (01) | DRG 292 ==
LOC: ER 16:28 → MEDJ 20:05 → ICU-2 20:05 → ICU 04-22 02:21 → MEDI 04-23 13:25 → MEDJ 04-25 18:02 → ICU 04-26 03:56 → MEDI 04-30 17:48
PROVIDERS: General Practice; Internal Medicine Geriatric Medicine; Internal Medicine Infectious Disease; Specialist/Technologist, Other Nephrology; Student in an Organized Health Care Education/Training Program; ADMIT Specialist; ATTEND Specialist
PROC: BT4JZZZ Ultrasonography of Kidneys and Bladder (ICD-10-PCS; principal; 2025-04-19)
PROC: B246ZZZ Ultrasonography of Right and Left Heart (ICD-10-PCS; 2025-04-20)
PROC: 4A12X4Z Monitoring of Cardiac Electrical Activity, External Approach (ICD-10-PCS; 2025-04-23)
PROC: 30233N1 Transfusion of Nonautologous Red Blood Cells into Peripheral Vein, Percutaneous Approach (ICD-10-PCS; 2025-04-25)
PROC: 5A1D70Z Performance of Urinary Filtration, Intermittent, Less than 6 Hours Per Day (ICD-10-PCS; 2025-04-26)
PROC: 5A1D70Z Performance of Urinary Filtration, Intermittent, Less than 6 Hours Per Day (ICD-10-PCS; 2025-05-01)
DX: I13.0 Hypertensive heart and chronic kidney disease with heart failure and stage 1 through stage 4 chronic kidney disease, or unspecified chronic kidney disease (principal); E87.21 Acute metabolic acidosis; I50.20 Unspecified systolic (congestive) heart failure; I16.9 Hypertensive crisis, unspecified; N18.30 Chronic kidney disease, stage 3 unspecified; E87.5 Hyperkalemia; E78.49 Other hyperlipidemia; D64.9 Anemia, unspecified